=== PATIENT | female | born 1990 | race Two or more races ===

== ENCOUNTER 2020-08-01 20:49 | Emergency (ER) | payer OTHER ==
[~2020-08-01] VITALS: Ht 162.6 cm; Wt 55.5 kg
[2020-08-01] MEDS ORDERED: IBUPROFEN 600 MG TABLET PO ONE (21:45)
[2020-08-01] MEDS ORDERED: IBUPROFEN 600 MG TABLET ONE (21:46)
--- NOTE | 2020-08-01 21:50 | NUR ---
SOFT C-COLLAR PLACED ON PATIENT. DENIES ANY DISCOMFORT.
--- NOTE | 2020-08-01 21:55 | NUR ---
Patient discharged to home in stable condition. Written and verbal after care instructions given. Patient verbalizes understanding of instructions. Stressed follow up or return to ER for worsening s/s.
[2020-08-01 22:03] VITALS: BP 128/81
== END 2020-08-01 22:04 | disposition home or self-care (01) ==
LOC: ER 20:51
DX: S16.1XXA Strain of muscle, fascia and tendon at neck level, initial encounter (principal); V43.52XA Car driver injured in collision with other type car in traffic accident, initial encounter; Y92.411 Interstate highway as the place of occurrence of the external cause
CPT/HCPCS: 72072; A4663